=== PATIENT | male | born 1995 | race Caucasian/White ===

== ENCOUNTER 2017-02-22 12:08 | Inpatient (IN) | payer OTHER ==
--- NOTE | ~2017-02-22 | PA ---
Unit #: [id number] #: [id number] Patient: PALMA BARBOSA [id number] [facility] [address] [place] [address] [id number] MR#: [id number] NAME: PALMA BARBOSA ROOM: P205 Age: 22 Sex: M Admission Date: 02/22/2017 : 1995 Date of Assessment: 02/23/2017 Attending Physician: Clyde Valentin M.D. Admitting Physician: Clyde Valentin M.D. PSYCHIATRIC ASSESSMENT DATE OF SERVICE 02/23/2017. INFORMANTS The patient, reliable; [facility], reliable; and [facility], reliable. CHIEF COMPLAINT Suicidal ideation. HISTORY OF PRESENT ILLNESS Mr. Barbosa is a 22-year-old man, who reports he takes Effexor and Zyprexa, but has been able to get these refills since he moved to [place], [place]. He has been out of his medications and apparently used a "white powder" which appeared to be either opioids or amphetamines both of which were positive on his drug screen. He made an incision in his left wrist and this was treated in the emergency room. [facility]. PAST PSYCHIATRIC HISTORY The patient has been hospitalized at [facility] in the past and has been treated as an outpatient. He has been taking Effexor XR and Zyprexa, but has been temporally noncompliant. FAMILY PSYCHIATRIC HISTORY The patient reports that his mother has "depression and anxiety." Father and brother are alcoholics and that his family is "pro-pot." He also reports that his older brother is "slightly schizophrenic or multiple personality disease." He has current legal charges of driving on a suspended license and some previous charges as well. He received his GED and is not working, living with his grandmother in [place], [place]. PAST MEDICAL HISTORY The patient reports he has cardiomyopathy and is not taking any medications for despite recommendations. MEDICATIONS None currently. ALLERGIES No known medication allergies. SUBSTANCE USE HISTORY The patient was positive for amphetamines and opioids in the emergency Unit #: [id number] #: [id number] Patient: PALMA BARBOSA room. He reports that he has smoked marijuana "maybe 3 times" and does admit to history of opioid abuse. MENTAL STATUS EXAMINATION The patient presented as a mildly disheveled man, who appeared his stated age. He stood 6 feet 3 inches tall, weighing 230 pounds. Vital signs; temperature 98.1, pulse 99, respirations 18, blood pressure 143/77. His speech was spontaneous and soft, but easily understood. Musculoskeletal examination was calm. His mood was irritable and depressed with a congruent affect. He was alert and fully oriented. Memory and concentration were fair. Thought processes were goal directed with no evidence of psychosis. He reported suicidal ideation and had made recent suicide attempt by wrist laceration. He was unable to contract for safety and was continued to do so in the hospital setting. Insight and judgment were fair. Fund of knowledge and abstraction were fair. ASSETS AND LIABILITIES The patient knows local resources and presents voluntarily for treatment. Liabilities include lack of current followup, possible ongoing drug use. ADMITTING DIAGNOSES AXIS I: Bipolar, depressed. AXIS II: Antisocial traits noted. AXIS III: History of cardiomyopathy. AXIS IV: AXIS V: PSYCHIATRIC PLAN The patient was admitted and placed on suicide precautions. Effexor and Zyprexa will be restarted after confirmation with his pharmacy, and his other medications will be explored and restarted following his physical examination. He will enroll in psychotherapy groups, and activities. TREATMENT GOALS Resolution of SI, stabilization of mood, improvement in insight, and improvement in coping skills. DISCHARGE PLANNING Follow up with community mental health center in [place], [place]. ESTIMATED LENGTH OF STAY 5 days. Dictated by... Sonia Stack/lida TD: 02/24/2017 06:56 JOB #: [id number] Unit #: [id number] #: [id number] Patient: PALMA BARBOSA PSYCHIATRIC ASSESSMENT Page 1 of 1 X Clyde Valentin MD PSYCHIATRIC ASSESSMENT
--- NOTE | ~2017-02-22 | DS ---
Unit #: [id number] #: [id number] Patient: STEFANO RONDON [id number] [facility] [address] [place] [address] [id number] I MR#: [id number] NAME: STEFANO RONDON ROOM: [facility] Age: 22 Sex: M Admission Date: 02/22/2017 : 1995 Discharge Date: 02/24/2017 Attending Physician: Clyde Valentin M.D. DISCHARGE SUMMARY REASON FOR ADMISSION Stefano is a 22-year-old man with a history of bipolar disorder, who reported that he has been off his medications since moving to a new city and being unable to locate a new provider. He used a "white powder," which was amphetamines or opioids, both of which were positive on his drug screen, and admitted he has a history of drug use. He made an incision to his left wrist which was treated in the emergency room and then [facility] DIAGNOSTIC STUDIES LABORATORY RESULTS: Please see hospital chart. HOSPITAL COURSE The patient was admitted and placed on suicide precautions. Effexor and Zyprexa were restarted after they were confirmed with his pharmacy and conservative care of his wound was continued as per the emergency room. He had a brief period of inpatient stabilization and was able to complete a safety plan with no suicidal ideation, intent, or plan. On the date of discharge, he was going to follow up with [facility] and this was arranged. He was discharged in safe condition. DISCHARGE DIAGNOSES AXIS I: Bipolar disorder depressed, history of amphetamine use, history of opioid use. AXIS II: Antisocial traits noted. AXIS III: History of cardiomyopathy, recent self-inflicted lacerations. AXIS IV: AXIS V: DISCHARGE INSTRUCTIONS The patient to follow up with [facility] and primary care physician. DISCHARGE MEDICATIONS Zyprexa 10 mg at bedtime for mood stability, Effexor XR 75 mg daily for depression, Topamax 25 mg daily for headache prophylaxis, Sinequan 50 mg at bedtime for insomnia, and Toprol-XL 100 mg daily for cardiomyopathy. CONDITION AT DISCHARGE Improved. Unit #: [id number] #: [id number] Patient: STEFANO RONDON PROGNOSIS Fair to good. DIET AND ACTIVITY Per primary care doctor. Dictated by... Clyde Valentin M.D. [facility]/modl TD: 02/25/2017 13:16 JOB #: [id number] DISCHARGE SUMMARY Page 1 of 1 X Clyde Valentin MD DISCHARGE SUMMARY
--- NOTE | ~2017-02-22 | HP ---
Unit #: [id number] #: [id number] Patient: STEFANO RONDON [id number] [facility] [address] [place] [address] [id number] MR#: [id number] NAME: STEFANO RONDON ROOM: [facility] Age: 22 Sex: M Admission Date: 02/22/2017 : 1995 Attending Physician: Clyde Valentin M.D. Admitting Physician: Clyde Valentin M.D. HISTORY AND PHYSICAL HISTORY OF PRESENT ILLNESS Stefano is a 22-year-old admitted to [address] [place] [address] with depression after an alleged suicide attempt by cutting his wrist. He was sutured in a local emergency room and then transferred to [facility] for psychiatric care. PAST MEDICAL HISTORY Cardiomyopathy. PAST SURGICAL HISTORY Nothing reported. ALLERGIES No known drug allergies. SOCIAL HISTORY Smokes 1/2 pack per day. Drinks alcohol rarely. Admits to smoking marijuana on a daily basis. Denies a history of opioid abuse. FAMILY HISTORY Medically noncontributory. REVIEW OF SYSTEMS CONSTITUTIONAL: No fever or chills. HEENT: Denies any sore throat, ear pain or runny nose. CARDIOVASCULAR: Denies chest pain, irregular heart rhythm or palpitations. CHEST: Denies shortness of breath or cough. No hemoptysis. GASTROINTESTINAL: Denies nausea, vomiting, diarrhea or chronic constipation. ENDOCRINE: Denies history of increased thirst or urination. No recent significant weight loss or gain. GENITOURINARY: Denies dysuria, frequency, or hematuria. SKIN: Denies any rashes. HEMATOLOGIC: Denies history of increased bleeding or bruising. MUSCULOSKELETAL: Denies any hot, swollen joints. No generalized muscle pain. NEUROLOGIC: Denies problems with vision or speech. No frequent, severe headaches. No numbness, tingling or weakness in any extremities. Denies loss of bladder or bowel control. CURRENT MEDICATIONS 1. Zyprexa 10 mg q.h.s. 2. Sinequan 50 mg q.h.s. 3. Milk of magnesia p.r.n. Unit #: [id number] #: [id number] Patient: STEFANO RONDON 4. Maalox p.r.n. 5. Tylenol p.r.n. 6. Toprol XL 50 mg 2 tabs every day. 7. Topamax 25 mg every day. 8. Effexor XR 75 mg every day. 9. Nicotine patch 7 mg every day. PHYSICAL EXAMINATION GENERAL: Alert, well nourished, and in no apparent distress. VITAL SIGNS: Blood pressure 110/70, heart rate 80, respirations 16, temperature 98.6, weight 230 pounds, and height 6 feet, 3 inches. SKIN: Warm and dry without rash. He has a significant laceration along his left wrist. Sutures are in place. There is good skin approximation, minimal redness, but no pus or swelling is noted. Neurovascular intact. HEENT: Normocephalic. TMs not viewed. Oral and nasal passages clear. Conjunctivae clear. PERRLA. EOMs intact. NECK: Supple without lymphadenopathy or thyromegaly. HEART: Regular rate and rhythm without murmur. LUNGS: Clear. ABDOMEN: Soft, nontender. : Not done. EXTREMITIES: No evidence of cyanosis, clubbing or edema. Moves all without focal deficit. NEUROLOGICAL: Grossly within normal limits. Cranial Nerves: II: Visual bolden are intact. III, IV AND : Extraocular movements are intact. Pupils are equal, round and reactive to light. V: Facial sensation is grossly normal. VII: Facial movements and expression are normal. VIII: Auditory acuity grossly intact. IX, X: Uvula is midline. Phonation is normal. XI: Patient shrugs shoulders and turns head normally. XII: Tongue protrudes in the midline. Sensory and Motor Function: Sensory and motor sensation is grossly normal. Motor: moves all extremities well. Coordination: Gait is normal. Deep Tendon Reflexes: Intact. IMPRESSION 1. Psychiatric admission. 2. Self-inflicted laceration to his left wrist sustained prior to this admission. RECOMMENDATIONS PSYCHIATRIC: Per psychiatrist. MEDICAL 1. I see no contraindication to participating in facility's activities. 2. Suture removal in seven days. MEDICAL PROGNOSIS Good. MEDICAL CONDITION Stable. Dictated by... Ro Quesada P.A.-C. for Domitila Valles M.D. Unit #: [id number] #: [id number] Patient: STEFANO RONDON HAFSA/chidi TD: 02/23/2017 11:16 JOB #: [id number] HISTORY AND PHYSICAL Page 1 of 1 X Ro Quesada HISTORY AND PHYSICAL
== END 2017-02-24 13:27 | DRG 885 ==
LOC: P2S 12:08
DX: F31.30 Bipolar disorder, current episode depressed, mild or moderate severity, unspecified (principal); I42.9 Cardiomyopathy, unspecified; R45.851 Suicidal ideations; Z72.811 Adult antisocial behavior; Z91.5 Personal history of self-harm; F12.90 Cannabis use, unspecified, uncomplicated; F17.210 Nicotine dependence, cigarettes, uncomplicated; S61.512D Laceration without foreign body of left wrist, subsequent encounter; X78.9XXD Intentional self-harm by unspecified sharp object, subsequent encounter